=== PATIENT | female | born 1960 ===

== ENCOUNTER 2022-12-20 02:41 | Emergency (ER) | payer OTHER ==
[2022-12-20] MEDS ORDERED: MORPHINE 4 MG/ML SYR ONE ×2 (03:27→04:02)
[2022-12-20] MEDS ORDERED: LIDOCAINE 1% 20 ML MDV ONE (03:28)
[2022-12-20] MEDS ORDERED: ONDANSETRON 4 MG/2 ML VIAL ONE (03:28)
[2022-12-20] MEDS ORDERED: KETOROLAC 30 MG/ML INJ ONE (03:28)
[2022-12-20 03:59] LABS: Absolute Lymphocytes (CBC) 2.4 K/uL (0.7-4.9); Hematocrit 36.2 % (36.0-45.0); Lymphocytes % 33.1 % (15.3-44.8); MCV 93.9 fL (80-100); RBC Red Blood Cell Count 3.85 M/uL (3.86-4.86)
[2022-12-20 04:04] LABS: Potassium 3.5 mEq/L (3.5-5.1)
--- NOTE | 2022-12-20 05:28 | EDPHYS ---
Physician Documentation [facility] Name: Clarisa Beltrán Age: 62 yrs Sex: Female : 1960 Arrival Date: 12/20/2022 Time: 02:41 Bed 16 Private MD: ED Physician Reji Urena HPI: 12/20 03:04 This 62 yrs old Female presents to ER via Unassigned with complaints of sp4 LACERATION TO EYEBROW, Fall Injury, Shoulder Injury, Shoulder Pain. 05:45 62-year-old female with extensive past medical history of fibromyalgia, hypothyroidism, sp4 undiagnosed rheumatologic condition, gastritis, autoimmune disorder, spastic colon, breast cancer, presents after acute fall at home with right eyebrow laceration, head injury, moderate to severe right shoulder pain, left knee pain and injury. Historical: - Allergies: 03:22 No Known Allergies; vc1 - PMHx: 03:22 Fibromyalgia; Hypothyroidism; Gastritis; Spastic Colon; Breast Cancer; vc1 - PSHx: 03:22 Left breast Mastectomy; Greater than 10 years; vc1 - Immunization history:: Client reports having NOT received the Covid vaccine. Last tetanus immunization: > 10 years ago. - Social history:: Smoking status: Patient denies any tobacco usage or history of. - Family history:: not pertinent. ROS: 05:45 Constitutional: Negative for fever, chills, and weight loss, positive fall at home sp4 positive head injury positive for left knee pain, positive right eyebrow laceration, positive right shoulder pain 05:45 All other systems are negative. Exam: 05:45 Constitutional: This is a well developed, well nourished patient who is awake, alert, sp4 moderate distress Head/Face: Normocephalic, right eyebrow laceration 3 cm along, no active bleeding right periorbital contusion Eyes: Pupils equal round and reactive to light, extra-ocular motions intact. Lids and lashes normal. Conjunctiva and sclera are not injected. Cornea within normal limits. Periorbital areas with no swelling, redness, or edema. ENT: Nares patent. No nasal discharge, no septal abnormalities noted. Tympanic membranes are normal and external auditory canals are clear. Oropharynx with no redness, swelling, or masses, exudates, or evidence of obstruction, uvula midline. Mucous membranes moist. Neck: Trachea midline, no thyromegaly or masses palpated, and no cervical lymphadenopathy. Supple, full range of motion without nuchal rigidity, or vertebral point tenderness. Chest/axilla: Normal chest wall appearance and motion. Nontender with no deformity. No lesions are appreciated. Cardiovascular: Regular rate and rhythm with a normal S1 and S2. No gallops, murmurs, or rubs. Normal PMI, no JVD. No pulse deficits. Respiratory: Lungs have equal breath sounds bilaterally, clear to auscultation and percussion. No rales, rhonchi or wheezes noted. No increased work of breathing, no retractions or nasal flaring. Abdomen/GI: Soft, non-tender, with normal bowel sounds. No distension or tympany. No guarding or rebound. No evidence of tenderness throughout. Back: No spinal tenderness. No costovertebral tenderness. Skin: Warm, dry with normal turgor. Normal color with no rashes, no lesions, and no evidence of cellulitis. MS/ Extremity: Pulses equal, no cyanosis. Neurovascular intact. Moderate to severe proximal humerus pain and some deformity indicative of right proximal humerus fracture. Neurovascular status intact, left knee contusion and discoloration. Otherwise negative exam Neuro: Awake and alert, GCS 15, oriented to person, place, time, and situation. Cranial nerves II-XII grossly intact. Motor strength 5/5 in all extremities. Sensory grossly intact. Psych: Awake, alert, with orientation to person, place and time. Behavior, mood, and affect are within normal limits Vital Signs: 03:21 Weight 49.9 kg; Height 5 ft. 3 in. ; Pain 10/10; vc1 03:25 BP 129 / 68; Pulse 81; Resp 20; Temp 98.3; Pulse Ox 100% ; bc6 05:30 BP 118 / 67; Pulse 94; Resp 16; Pulse Ox 96% on R/A; jb4 03:21 Body Mass Index 19.49 (49.90 kg, 160.02 cm) vc1 03:21 Pain Scale: Adult vc1 Stanberry Coma Score: 03:20 Eye Response: spontaneous(4). Motor Response: obeys commands(6). Verbal Response: jb4 oriented(5). Total: 15. Trauma Score (Adult): 03:20 Eye Response: spontaneous(1); Verbal Response: oriented(1); Motor Response: obeys jb4 commands(2); Systolic BP: > 89 mm Hg(4); Respiratory Rate: 10 to 29 per min(4); Stanberry Score: 15; Trauma Score: 12 Procedures: 05:45 Splinting: Splint applied to anterior aspect of right shoulder and right bicep using sp4 sling, Right shoulder immobilizer. applied by nurse. Examined by me, post splint application: neurovascular intact, 2+ distal pulses palpable, brisk capillary refill noted, Patient tolerated well. Laceration: 05:45 Wound Repair of 3cm ( 1.2in ) subcutaneous laceration to outer aspect of right eyebrow. sp4 Irregularly shaped.. Skin/tissue flap noted.. Distal neuro/vascular/tendon intact. Anesthesia: Wound infiltrated with 10 mls of 1% lidocaine. Wound prep: Moderate cleansing by me, Copious irrigation. Skin closed with 9 6-0 Prolene using interrupted sutures and sterile technique. Dressed with left to air . Patient tolerated well. MDM: 03:14 Patient medically screened. sp4 05:35 Data reviewed: vital signs, nurses notes, old medical records, lab test result(s), sp4 radiologic studies, CT scan, plain films. ED course: FINDINGS/IMPRESSION: Oblique fracture through the right humeral neck, with approximately 1.4 cm of medial and proximal displacement of the distal humeral fracture fragment. Suspected additional nondisplaced subcapital fracture of the right humeral neck. No dislocation. No additional fractures of the visualized osseous structures. . ED course: PROCEDURE: CT Head and Cervical Spine Without Intravenous Contrast CLINICAL INDICATION: The patient is 62 years old and is Female; fall [facility] MAIN TECHNIQUE: Axial computed tomography images of the head/brain and cervical spine without intravenous contrast. Sagittal and coronal reformatted images were created and reviewed. This CT exam was performed using one or more of the following dose reduction techniques: automated exposure control, adjustment of the mA and/or kV according to patient size, and/or use of iterative reconstruction technique. COMPARISON: No relevant prior studies available. FINDINGS: BRAIN: Unremarkable. No extra-axial fluid collection. No intracranial hemorrhage. No focal wiggins-white matter differentiation abnormality. MIDLINE SHIFT: No midline shift. VENTRICLES: Unremarkable. No ventriculomegaly. SKULL: See below. SINUSES: Unremarkable as visualized. No acute sinusitis. MASTOID AIR CELLS: Unremarkable as visualized. No mastoid effusion. VERTEBRAE: Unremarkable. No acute fracture. Normal alignment. DISCS/SPINAL CANAL/NEURAL FORAMINA: No acute findings. No spinal canal stenosis. No transtentorial herniation. OTHER BONES/JOINTS: Unremarkable as visualized. No fracture of the calvarium or visualized facial bones. SOFT TISSUES: Unremarkable. IMPRESSION: No acute intracranial abnormality. . ED course: PROCEDURE: XR Left Knee, 3 Views CLINICAL INDICATION: The patient is 62 years old and is Female; fall, knee pain [facility] MAIN TECHNIQUE: Three views of the left knee. COMPARISON: No relevant prior studies available. FINDINGS: BONES/JOINTS: Unremarkable. No acute fracture. No dislocation. SOFT TISSUES: Unremarkable. IMPRESSION: Unremarkable left knee radiographs. . ED course: CLINICAL HISTORY: right shoulder pain COMPARISON: None. TECHNIQUE: XR CHEST 1 VIEW 12/20/2022 3:12 AM CDT FINDINGS: Cardiac silhouette is normal in size. Lungs are clear without consolidation, atelectasis, mass or edema. There is no pleural effusion. There is no pneumothorax. There is a displaced and comminuted fracture of the proximal right humeral shaft and neck. IMPRESSION: Proximal right humerus fracture. . 05:45 Differential diagnosis: abrasion, closed head injury, contusion, fracture, laceration, sp4 multiple trauma, sprain. Consideration of Admission/Observation Escalation of care including admission/observation considered. ED course: Right eyebrow laceration-sutures have to stay for at least 20 days.. Regular wound care advised.. ED course: Right proximal humerus fracture -advised visit with orthopedist soon as possible for an office evaluation. Shoulder immobilizer was applied. Patient advised to wear shoulder immobilizer at all times until she can see orthopedist.. ED course: Tetanus shot is not available in hospital. Patient was prescribed tetanus booster and advised to get it from the pharmacy and self administer or take it to primary care physician and have them administer in the office.. . 08 03:13 Order name: Basic Metabolic Panel; Complete Time: 04:41 sp4 12/20 03:13 Order name: CBC with Diff; Complete Time: 04:41 sp4 12/20 03:13 Order name: Type And Screen; Complete Time: 05:44 sp4 12/20 03:12 Order name: Shoulder Right (2 View) XRAY sp4 12/20 03:12 Order name: Chest Single View XRAY sp4 12/20 03:13 Order name: CT Head C Spine sp4 12/20 03:14 Order name: Knee Left 3 View XRAY sp4 12/20 03:40 Order name: Hand Left 3 View XRAY sp4 12/20 03:13 Order name: Dressing - Wound; Complete Time: 05:00 sp4 12/20 03:13 Order name: Gloves, Sterile; Complete Time: 05:00 sp4 12/20 03:13 Order name: Setup Suture Tray; Complete Time: 05:00 sp4 12/20 03:13 Order name: Labs collected and sent; Complete Time: 03:22 sp4 12/20 04:41 Order name: Shoulder Immobilizer; Complete Time: 05:36 sp4 Administered Medications: 03:26 Drug: Ondansetron IVP 4 mg Route: IVP; Site: left antecubital; jb4 04:00 Follow up: Response: No adverse reaction jb4 03:26 Drug: Ketorolac IVP 30 mg Route: IVP; Site: left antecubital; jb4 04:00 Follow up: Response: No adverse reaction; Pain is decreased jb4 03:27 Drug: morphine IVP or IV 4 mg Route: IVP; Infused Over: 4 mins; Site: left antecubital; jb4 04:00 Follow up: Response: No adverse reaction; Pain is decreased jb4 04:08 Drug: morphine IVP or IV 4 mg Route: IVP; Infused Over: 4 mins; Site: left antecubital; jb4 05:00 Follow up: Response: No adverse reaction; Pain is decreased jb4 04:59 Drug: Lidocaine Infiltration (1 %) 20 ml {Note: administered by ER provider.} Volume: jb4 20 ml; Route: Infiltration; 05:54 Drug: [place] PO 10 mg-325 mg 1 tabs Route: PO; jb4 05:55 Follow up: Response: Medication administered at discharge. jb4 05:54 Drug: Promethazine PO 25 mg Route: PO; jb4 05:55 Follow up: Response: Medication administered at discharge. jb4 Disposition Summary: 12/20/22 05:27 Discharge Ordered Location: Home sp4 Problem: new sp4 Symptoms: have improved sp4 Condition: Stable sp4 Diagnosis - Fracture of upper end of humerus sp4 - Right humerus neck fracture, right eyebrow laceration, head injury, fall at home sp4 Followup: sp4 - With: Shukri Lynn MD - When: 1 - 2 days - Reason: Recheck today's complaints Discharge Instructions: - Discharge Summary Sheet sp4 - Humerus Fracture Treated With Immobilization sp4 Forms: - Prescription Opioid Use sp4 - Patient Portal Instructions sp4 Prescriptions: - tetanus and diphther. tox (PF) 5-2 Lf unit/0.5 mL Intramuscular Syringe - inject 0.5 milliliter by INTRAMUSCULAR route once for 1 day as a single dose, sp4 dispense 1 vaccine; 1 unit; Refills: 0, Product Selection Permitted - Ibuprofen 600 mg Oral Tablet - take 1 tablet by ORAL route every 6 hours As needed take with food; 30 tablet; sp4 Refills: 0, Product Selection Permitted - Tramadol 50 mg Oral Tablet - take 1 tablet by ORAL route every 6 hours PRN pain; 30 tablet; Refills: 0, sp4 Product Selection Permitted - promethazine 25 mg Oral Tablet - take 1 tablet by ORAL route every 6 hours As needed; 30 tablet; Refills: 0, sp4 Product Selection Permitted Signatures: Dispatcher [employer] EDAndres Malone RN RN jb4 Shanell Khan RN RN vc1 Reji Urena MD MD sp4 Corrections: (The following items were deleted from the chart) 04:19 03:13 Humerus Right+RAD.RAD.BRZ ordered. EDMS EDMS 04:41 04:40 Sling ordered. sp4 sp4
--- NOTE | 2022-12-20 05:28 | ER ---
Nurse's Notes [facility] Name: Clarisa Beltrán Age: 62 yrs Sex: Female : 1960 Arrival Date: 12/20/2022 Time: 02:41 Bed 16 Private MD: Diagnosis: Fracture of upper end of humerus;Right humerus neck fracture, right eyebrow laceration, head injury, fall at home Presentation: 12/20 03:19 Chief complaint: Patient states: "I tripped and fell about 0200 and I think I popped vc1 out my arm because it hurts and I can't move it.". Coronavirus screen: Vaccine status: Patient reports being unvaccinated. Client denies travel out of the [place] in the last 14 days. At this time, the client does not indicate any symptoms associated with coronavirus-19. Ebola Screen: Patient negative for fever greater than or equal to 101.5 degrees Fahrenheit, and additional compatible Ebola Virus Disease symptoms Patient denies exposure to infectious person. Patient denies travel to an Ebola-affected area in the 21 days before illness onset. No symptoms or risks identified at this time. Risk Assessment: Do you want to hurt yourself or someone else? Patient reports no desire to harm self or others. Note Pt states she doesn't think she lost consciousness if she did it was for a brief second. Onset of symptoms was December 20, 2022 at 02:00. 03:19 Method Of Arrival: Ambulatory vc1 03:19 Acuity: SHELLIE 3 vc1 03:21 Initial Sepsis Screen: Does the patient meet any 2 criteria? No. Patient's initial vc1 sepsis screen is negative. Does the patient have a suspected source of infection? No. Patient's initial sepsis screen is negative. Triage Assessment: 03:25 General: Appears distressed, uncomfortable, Behavior is cooperative, crying. Pain: vc1 Complains of pain in Right eyebrow, right upper arm, left knee Pain currently is 10 out of 10 on a pain scale. EENT: No deficits noted. No signs and/or symptoms were reported regarding the EENT system. Neuro: Level of Consciousness is awake, alert, obeys commands, Oriented to person, place, time, situation, Appropriate for age. Cardiovascular: No deficits noted. Respiratory: Airway is patent Respiratory effort is even, unlabored, Respiratory pattern is regular, symmetrical. GI: No deficits noted. No signs and/or symptoms were reported involving the gastrointestinal system. : No deficits noted. No signs and/or symptoms were reported regarding the genitourinary system. Derm: Wound noted right eyebrow. Musculoskeletal: Swelling present in left knee Reports pain in right arm unable to move right arm. Injury Description: Laceration sustained to right eyebrow is clean, 0.5 to 2.5 cm long, was sustained 1-2 hours ago. moderate bleeding noted at this time. Historical: - Allergies: 03:22 No Known Allergies; vc1 - PMHx: 03:22 Fibromyalgia; Hypothyroidism; Gastritis; Spastic Colon; Breast Cancer; vc1 - PSHx: 03:22 Left breast Mastectomy; Greater than 10 years; vc1 - Immunization history:: Client reports having NOT received the Covid vaccine. Last tetanus immunization: > 10 years ago. - Social history:: Smoking status: Patient denies any tobacco usage or history of. - Family history:: not pertinent. Screenin:[address] [facility] ED Fall Risk Assessment (Adult) History of falling in the last 3 months, jb4 including since admission Yes- single mechanical fall (1 pt) Confusion or Disorientation No (0 pts) Score/Fall Risk Level 0 - 2 = Low Risk Oriented to surroundings, Maintained a safe environment. Abuse screen: Denies threats or abuse. Nutritional screening: No deficits noted. Tuberculosis screening: No symptoms or risk factors identified. Assessment: 03:20 General: Appears in no apparent distress. uncomfortable, Behavior is calm, cooperative, jb4 appropriate for age. Pain: Complains of pain in right eye, dorsal aspect of distal phalanx of left index finger, dorsal aspect of distal phalanx of left middle finger, right arm, right knee and left knee Pain does not radiate. Pain currently is 10 out of 10 on a pain scale. Neuro: Level of Consciousness is awake, alert, obeys commands, Oriented to person, place, time, situation. Cardiovascular: Patient's skin is warm and dry. Respiratory: Airway is patent Respiratory effort is even, unlabored, Respiratory pattern is regular, symmetrical. GI: No signs and/or symptoms were reported involving the gastrointestinal system. : No signs and/or symptoms were reported regarding the genitourinary system. EENT: No signs and/or symptoms were reported regarding the EENT system. Derm: Skin is pink, warm \\T\\ dry. Musculoskeletal: Range of motion: limited in right shoulder. 05:00 Reassessment: Patient appears in no apparent distress at this time. Patient and/or jb4 family updated on plan of care and expected duration. Pain level reassessed. Patient is alert, oriented x 3, equal unlabored respirations, skin warm/dry/pink. 05:57 Reassessment: Patient appears in no apparent distress at this time. Patient and/or jb4 family updated on plan of care and expected duration. Pain level reassessed. Patient is alert, oriented x 3, equal unlabored respirations, skin warm/dry/pink. Vital Signs: 03:21 Weight 49.9 kg; Height 5 ft. 3 in. ; Pain 10/10; vc1 03:25 BP 129 / 68; Pulse 81; Resp 20; Temp 98.3; Pulse Ox 100% ; bc6 05:30 BP 118 / 67; Pulse 94; Resp 16; Pulse Ox 96% on R/A; jb4 03:21 Body Mass Index 19.49 (49.90 kg, 160.02 cm) vc1 03:21 Pain Scale: Adult vc1 Jackson Coma Score: 03:20 Eye Response: spontaneous(4). Motor Response: obeys commands(6). Verbal Response: jb4 oriented(5). Total: 15. Trauma Score (Adult): 03:20 Eye Response: spontaneous(1); Verbal Response: oriented(1); Motor Response: obeys jb4 commands(2); Systolic BP: > 89 mm Hg(4); Respiratory Rate: 10 to 29 per min(4); Liss Score: 15; Trauma Score: 12 ED Course: 02:44 Patient arrived in ED. ag3 03:04 Reji Urena MD is Attending Physician. sp4 03:21 Triage completed. vc1 03:22 Basic Metabolic Panel Sent. bc6 03:22 CBC with Diff Sent. bc6 03:22 Type And Screen Sent. bc6 03:22 Inserted saline lock: 20 gauge in left antecubital area, using aseptic technique. Blood bc6 collected. 03:25 Arm band placed on left wrist. vc1 03:28 Patient has correct armband on for positive identification. Bed in low position. Call vc1 light in reach. Pulse ox on. NIBP on. 04:20 Shoulder Right (2 View) XRAY In Process Unspecified. EDMS 04:20 Chest Single View XRAY In Process Unspecified. EDMS 04:20 Knee Left 3 View XRAY In Process Unspecified. EDMS 04:20 Hand Left 3 View XRAY In Process Unspecified. EDMS 04:25 CT Head C Spine In Process Unspecified. EDMS 05:04 Andres Mitchell RN is Primary Nurse. jb4 05:25 Shukri Lynn MD is Referral Physician. sp4 05:30 Assist provider with laceration repair on middle aspect of right eyebrow and outer jb4 aspect of right eyebrow that was between 2.6 to 7.5 cm using sutures. Set up tray. Performed by Reji Urena MD Patient tolerated well. IV discontinued, intact, bleeding controlled, No redness/swelling at site. Pressure dressing applied. Administered Medications: 03:26 Drug: Ondansetron IVP 4 mg Route: IVP; Site: left antecubital; jb4 04:00 Follow up: Response: No adverse reaction jb4 03:26 Drug: Ketorolac IVP 30 mg Route: IVP; Site: left antecubital; jb4 04:00 Follow up: Response: No adverse reaction; Pain is decreased jb4 03:27 Drug: morphine IVP or IV 4 mg Route: IVP; Infused Over: 4 mins; Site: left antecubital; jb4 04:00 Follow up: Response: No adverse reaction; Pain is decreased jb4 04:08 Drug: morphine IVP or IV 4 mg Route: IVP; Infused Over: 4 mins; Site: left antecubital; jb4 05:00 Follow up: Response: No adverse reaction; Pain is decreased jb4 04:59 Drug: Lidocaine Infiltration (1 %) 20 ml {Note: administered by ER provider.} Volume: jb4 20 ml; Route: Infiltration; 05:54 Drug: [place] PO 10 mg-325 mg 1 tabs Route: PO; jb4 05:55 Follow up: Response: Medication administered at discharge. jb4 05:54 Drug: Promethazine PO 25 mg Route: PO; jb4 05:55 Follow up: Response: Medication administered at discharge. jb4 Medication: 05:30 VIS not applicable for this client. jb4 Outcome: 05:27 Discharge ordered by . sp4 05:55 Discharged to home via wheelchair, with family. jb4 05:55 Condition: stable 05:55 Discharge instructions given to patient, Instructed on discharge instructions, follow up and referral plans. medication usage, Demonstrated understanding of instructions, follow-up care, medications, Prescriptions given X 4. 06:00 Patient left the ED. jb4 Signatures: Dispatcher [employer] EDMS Andres Mitchell RN RN jb4 [place] Joe ag3 Shanell Khan RN RN vc1 Lacy Palomares6 Reji Urena MD MD sp4
[2022-12-20] MEDS ORDERED: PROMETHAZINE 25 MG TABLET ONE (05:48)
[2022-12-20] MEDS ORDERED: HYDROCODONE/APAP 10/325 TAB ONE (05:48)
[2022-12-20 06:22] VITALS: TEMP 98.3
[2022-12-20 06:28] VITALS: BP 118/67; O2SAT 96
--- NOTE | 2022-12-20 14:03 | RAD REPORT ---
EXAM DESCRIPTION: RAD - Hand Left 3 View - 12/20/2022 4:18 am CLINICAL HISTORY: Fall hand pain COMPARISON: None. TECHNIQUE: XR HAND 3 OR MORE VIEWS 12/20/2022 3:40 AM CDT FINDINGS: There is no fracture. Joint spaces are preserved. Soft tissues are unremarkable. IMPRESSION: No acute osseous findings. Electronically signed by: Oniel Freeman MD 12/20/2022 4:56 AM CDT Due to temporary technical issues with the PACS/Fluency reporting system, reports are being signed by the in house radiologists without review as a courtesy to insure prompt reporting. The interpreting radiologist is fully responsible for the content of the report.
--- NOTE | 2022-12-20 14:07 | RAD REPORT ---
EXAM DESCRIPTION: CT - Head C Spine Mpr Wo Con - 12/20/2022 6:23 am CLINICAL HISTORY: The patient is 62 years old and is Female; fall [facility] MAIN TECHNIQUE: Axial computed tomography images of the head/brain and cervical spine without intravenous contrast. Sagittal and coronal reformatted images were created and reviewed. This CT exam was pe rformed using one or more of the following dose reduction techniques: automated exposure control, a djustment of the mA and/or kV according to patient size, and/or use of iterative reconstruction techn ique. COMPARISON: No relevant prior studies available. FINDINGS: BRAIN: Unremarkable. No extra-axial fluid collection. No intracranial hemorrhage. No focal wiggins-white matter differentiation abnormality. MIDLINE SHIFT: No midline shift. VENTRICLES: Unremarkable. No ventriculomegaly. SKULL: See below. SINUSES: Unremarkable as visualized. No acute sinusitis. MASTOID AIR CELLS: Unremarkable as visualized. No mastoid effusion. VERTEBRAE: Unremarkable. No acute fracture. Normal alignment. DISCS/SPINAL CANAL/NEURAL FORAMINA: No acute findings. No spinal canal stenosis. No transtentorial herniation. OTHER BONES/JOINTS: Unremarkable as visualized. No fracture of the calvarium or visualized facial bones. SOFT TISSUES: Unremarkable. IMPRESSION: No acute intracranial abnormality. Electronically signed by: Sharath Ashby MD 12/20/2022 4:48 AM CDT Due to temporary technical issues with the PACS/Fluency reporting system, reports are being signed by the in house radiologists without review as a courtesy to insure prompt reporting. The interpreting radiologist is fully responsible for the content of the report.
--- NOTE | 2022-12-20 14:11 | RAD REPORT ---
EXAM DESCRIPTION: RAD - Shoulder Right 2 View - 12/20/2022 4:18 am CLINICAL HISTORY: The patient is 62 years old and is Female; PAIN Shoulder Right 2 View [facility] MAIN TECHNIQUE: One view of the right shoulder. COMPARISON: No relevant prior studies available. FINDINGS/IMPRESSION: Oblique fracture through the right humeral neck, with approximately 1.4 cm of m edial and proximal displacement of the distal humeral fracture fragment. Suspected additional nondisplaced subcapital fracture of the right humeral neck. No dislocation. No additional fractures of the visualized osseous structures. Electronically signed by: Sharath Ashby MD 12/20/2022 4:45 AM CDT Due to temporary technical issues with the PACS/Fluency reporting system, reports are being signed by the in house radiologists without review as a courtesy to insure prompt reporting. The interpreting radiologist is fully responsible for the content of the report.
--- NOTE | 2022-12-20 14:22 | RAD REPORT ---
EXAM DESCRIPTION: RAD - Chest Single View - 12/20/2022 4:18 am CLINICAL HISTORY: Right shoulder pain COMPARISON: None. TECHNIQUE: XR CHEST 1 VIEW 12/20/2022 3:12 AM CDT FINDINGS: Cardiac silhouette is normal in size. Lungs are clear without consolidation, atelectasis, mass or edema. There is no pleural effusion. There is no pneumothorax. There is a displaced and commi nuted fracture of the proximal right humeral shaft and neck. IMPRESSION: Proximal right humerus fracture. Electronically signed by: Oniel Freeman MD 12/20/2022 4:53 AM CDT Due to temporary technical issues with the PACS/Fluency reporting system, reports are being signed by the in house radiologists without review as a courtesy to insure prompt reporting. The interpreting radiologist is fully responsible for the content of the report.
--- NOTE | 2022-12-20 14:23 | RAD REPORT ---
EXAM DESCRIPTION: RAD - Knee Left 3 View - 12/20/2022 4:18 am CLINICAL HISTORY: The patient is 62 years old and is Female; fall, knee pain [facility] MAIN TECHNIQUE: Three views of the left knee. COMPARISON: No relevant prior studies available. FINDINGS: BONES/JOINTS: Unremarkable. No acute fracture. No dislocation. SOFT TISSUES: Unremarkable. IMPRESSION: Unremarkable left knee radiographs. Electronically signed by: Sharath Ashby MD 12/20/2022 4:50 AM CDT Due to temporary technical issues with the PACS/Fluency reporting system, reports are being signed by the in house radiologists without review as a courtesy to insure prompt reporting. The interpreting radiologist is fully responsible for the content of the report.
== END 2022-12-20 06:00 | disposition home or self-care (01) ==
LOC: ER 02:41
PROC: 0HQ1XZZ Repair Face Skin, External Approach (ICD-10-PCS; principal; 2022-12-20)
DX: S42.291A Other displaced fracture of upper end of right humerus, initial encounter for closed fracture (principal); S01.111A Laceration without foreign body of right eyelid and periocular area, initial encounter; W19.XXXA Unspecified fall, initial encounter; Y92.009 Unspecified place in unspecified non-institutional (private) residence as the place of occurrence of the external cause
CPT/HCPCS: 85025; 80048; 36415; 86900; 86850; 86901; 70450; 72125; 71045; 73130; 73030; 73562; 12013; Q0169; J2001; J2405